=== PATIENT | female | born 1960 | race American Indian/Alaskan Native ===

== ENCOUNTER 2018-02-19 23:37 | Emergency (ER) | payer BC ==
[2018-02-20] MEDS ORDERED: MOTRIN PO ONE (05:42)
[2018-02-20] MEDS ORDERED: NORCO 7.5/325 PO ONE (05:42)
[2018-02-20] MEDS ORDERED: CLEOCIN IM ONE ×2 (05:42→06:20)
--- NOTE | 2018-02-20 05:42 | Emergency Department Report ---
ED ENT HPI - General Chief complaint: Dental/Oral Stated complaint: FACE SWOLLEN, HEADACHE Time Seen by Provider: 02/20/18 05:00 Source: patient, family Mode of arrival: Ambulatory Limitations: No Limitations - History of Present Illness Initial comments: Patient reports that she is having facial swelling to right side of her face felt an onset 1 hour prior to coming to the emergency room. She said prior to that she was eating some grapes and it started hurting and swollen in front of her right ear and behind her left ear. Reports pain is radiating into her right side of her head 5/10 feel achy. Pain to facial swelling site is also achy and 510. Denies any fever or chills. Denies any nausea or vomiting. Denies any trauma. Denies any difficulty opening and closing mouth. She does report the pain is worse with touch and would talking. No medication taken prior to coming to the emergency room MD complaint: other (right facial swelling radiating to right side of head) -: During the night Severity: moderate Severity scale (0 -10): 5 Quality: aching Consistency: constant Improves with: none Worsens with: other (palpation and talking) Context- Ear: other (patient with right facial swelling not involved in external ear canal or tympanic membrane) Associated Symptoms: denies: fever, cough, gum swelling, toothache, pain with swallowing, sore throat, tinnitus, hearing loss, discharge from ear, rhinorrhea - Related Data Home Medications Medication Instructions Recorded Confirmed Last Taken Hydrochlorothiazide [HCTZ] 25 mg PO DAILY 06/19/13 07/30/16 07/30/16 25mg Levothyroxine [Synthroid] 137 mcg PO QAM 06/19/13 07/30/16 07/30/16 137mcg Potassium Chloride 20 Meq [KCl 20 meq PO DAILY 06/19/13 07/30/16 07/30/16 20Meq/100Ml] 20meq AtorvaSTATin [Lipitor] 40 mg PO QHS 07/30/16 07/30/16 07/29/16 40mg Colchicine [Mitigare] 0.6 mg PO DAILY 07/30/16 07/30/16 07/30/16 0.6mg Dapagliflozin Propanediol (Nf) 5 mg PO BID 07/30/16 07/30/16 07/30/16 [Farxiga (Nf)] 5mg Duloxetine HCl [DULoxetine] 30 mg PO DAILY 07/30/16 07/30/16 07/30/16 30mg Insulin Detemir [Levemir Flexpen] 21 units SC DAILY 07/30/16 07/30/16 07/30/16 21 units Liraglutide [Victoza 2-Arden] 1.2 units SC DAILY 07/30/16 07/30/16 07/30/16 1.2 units Meloxicam [Mobic] 7.5 mg PO BID 07/30/16 07/30/16 07/30/16 7.5mg Vitamin D2 50,000 units PO 1XW 07/30/16 07/30/16 07/30/16 22290 units Previous Rx's Medication Instructions Recorded Last Taken Type Acetaminophen/Codeine [Tylenol 1 tab PO Q6H PRN #12 tab 02/20/18 Unknown Rx /Codeine # 3 tab] Clindamycin [Clindamycin CAP] 300 mg PO Q6H 10 Days #40 capsule 02/20/18 Unknown Rx Allergies Allergy/AdvReac Type Severity Reaction Status Date / Time No Known Allergies Allergy Verified 06/08/15 16:19 ED Dental HPI - General Chief complaint: Dental/Oral Stated complaint: FACE SWOLLEN, HEADACHE Time Seen by Provider: 02/20/18 05:00 Source: patient Mode of arrival: Ambulatory Limitations: No Limitations - Related Data Home Medications Medication Instructions Recorded Confirmed Last Taken Hydrochlorothiazide [HCTZ] 25 mg PO DAILY 06/19/13 07/30/16 07/30/16 25mg Levothyroxine [Synthroid] 137 mcg PO QAM 06/19/13 07/30/16 07/30/16 137mcg Potassium Chloride 20 Meq [KCl 20 meq PO DAILY 06/19/13 07/30/16 07/30/16 20Meq/100Ml] 20meq AtorvaSTATin [Lipitor] 40 mg PO QHS 07/30/16 07/30/16 07/29/16 40mg Colchicine [Mitigare] 0.6 mg PO DAILY 07/30/16 07/30/16 07/30/16 0.6mg Dapagliflozin Propanediol (Nf) 5 mg PO BID 07/30/16 07/30/16 07/30/16 [Farxiga (Nf)] 5mg Duloxetine HCl [DULoxetine] 30 mg PO DAILY 07/30/16 07/30/16 07/30/16 30mg Insulin Detemir [Levemir Flexpen] 21 units SC DAILY 07/30/16 07/30/16 07/30/16 21 units Liraglutide [Victoza 2-Arden] 1.2 units SC DAILY 07/30/16 07/30/16 07/30/16 1.2 units Meloxicam [Mobic] 7.5 mg PO BID 07/30/16 07/30/16 07/30/16 7.5mg Vitamin D2 50,000 units PO 1XW 07/30/16 07/30/16 07/30/16 63375 units Previous Rx's Medication Instructions Recorded Last Taken Type Acetaminophen/Codeine [Tylenol 1 tab PO Q6H PRN #12 tab 02/20/18 Unknown Rx /Codeine # 3 tab] Clindamycin [Clindamycin CAP] 300 mg PO Q6H 10 Days #40 capsule 02/20/18 Unknown Rx Allergies Allergy/AdvReac Type Severity Reaction Status Date / Time No Known Allergies Allergy Verified 06/08/15 16:19 ED Review of Systems ROS: Stated complaint: FACE SWOLLEN, HEADACHE Other details as noted in HPI Constitutional: denies: chills, fever, malaise Eyes: denies: eye pain, eye discharge, vision change ENT: other (right facial pain and swelling). denies: ear pain, throat pain, dental pain, hearing loss, epistaxis, congestion Respiratory: denies: cough, shortness of breath, SOB with exertion, SOB at rest , stridor, wheezing Cardiovascular: denies: chest pain, palpitations, edema, syncope Gastrointestinal: denies: abdominal pain, nausea, vomiting, diarrhea Genitourinary: denies: urgency, dysuria, discharge Musculoskeletal: arthralgia (pain to right face.). denies: back pain, joint swelling, myalgia Skin: other (swelling to right face). denies: rash, lesions Neurological: headache. denies: weakness, numbness, paresthesias, confusion, abnormal gait, vertigo ED Past Medical Hx - Past Medical History Previous Medical History?: Yes Hx Hypertension: Yes (10/07/2001) Hx Congestive Heart Failure: No Hx Diabetes: Yes Hx Arthritis: Yes Hx Asthma: No Hx COPD: No Additional medical history: thyroid problems. DIVERTICULITIS - Surgical History Past Surgical History?: Yes Hx Coronary Stent: No Hx Breast Surgery: Yes (double masectomy) Additional Surgical History: Partial thyroidectomy. HYSTERECTOMY - Family History Family history: diabetes, hypertension - Social History Smoking Status: Current Every Day Smoker Substance Use Type: Alcohol (socially) Other Social History: Patient is and lives with family - Medications Home Medications: Home Medications Medication Instructions Recorded Confirmed Last Taken Type Hydrochlorothiazide [HCTZ] 25 mg PO DAILY 06/19/13 07/30/16 07/30/16 History 25mg Levothyroxine [Synthroid] 137 mcg PO QAM 06/19/13 07/30/16 07/30/16 History 137mcg Potassium Chloride 20 Meq [KCl 20 meq PO DAILY 06/19/13 07/30/16 07/30/16 History 20Meq/100Ml] 20meq AtorvaSTATin [Lipitor] 40 mg PO QHS 07/30/16 07/30/16 07/29/16 History 40mg Colchicine [Mitigare] 0.6 mg PO DAILY 07/30/16 07/30/16 07/30/16 History 0.6mg Dapagliflozin Propanediol (Nf) 5 mg PO BID 07/30/16 07/30/16 07/30/16 History [Farxiga (Nf)] 5mg Duloxetine HCl [DULoxetine] 30 mg PO DAILY 07/30/16 07/30/16 07/30/16 History 30mg Insulin Detemir [Levemir Flexpen] 21 units SC DAILY 07/30/16 07/30/16 07/30/16 History 21 units Liraglutide [Victoza 2-Arden] 1.2 units SC DAILY 07/30/16 07/30/16 07/30/16 History 1.2 units Meloxicam [Mobic] 7.5 mg PO BID 07/30/16 07/30/16 07/30/16 History 7.5mg Vitamin D2 50,000 units PO 1XW 07/30/16 07/30/16 07/30/16 History 35311 units Acetaminophen/Codeine [Tylenol 1 tab PO Q6H PRN #12 tab 02/20/18 Unknown Rx /Codeine # 3 tab] Clindamycin [Clindamycin CAP] 300 mg PO Q6H 10 Days #40 capsule 02/20/18 Unknown Rx ED Physical Exam - General Limitations: No Limitations General appearance: alert, in no apparent distress - Head Head exam: Present: atraumatic, normocephalic, normal inspection, other (normal exam.) - Eye Eye exam: Present: normal appearance, PERRL, EOMI. Absent: scleral icterus, conjunctival injection, nystagmus, periorbital swelling, periorbital tenderness Pupils: Present: normal accommodation - ENT ENT exam: Present: normal exam, normal orophraynx, mucous membranes moist, TM's normal bilaterally, normal external ear exam, other (pre-and post auricular swelling that is fluctuant and tender to palpate. No mastoid point tenderness.) - Expanded ENT Exam Expanded Ear exam: Present: normal external inspection Mouth exam: Present: other (tender to palpate to oral mucosa right upper. No induration or cellulitis area noted.). Absent: normal external inspection, drooling, trismus, muffled voice, tongue elevation, laceration Teeth exam: Present: normal inspection. Absent: gingival enlargement Throat exam: Positive: normal inspection - Neck Neck exam: Present: normal inspection, full ROM, other (no C-spine tenderness). Absent: tenderness, lymphadenopathy - Respiratory Respiratory exam: Present: normal lung sounds bilaterally. Absent: respiratory distress, chest wall tenderness - Cardiovascular Cardiovascular Exam: Present: regular rate, normal rhythm. Absent: systolic murmur, diastolic murmur, rubs, gallop - GI/Abdominal GI/Abdominal exam: Present: soft, normal bowel sounds. Absent: distended, tenderness, guarding, rebound, rigid, organomegaly, mass, bruit, pulsatile mass , hernia - Extremities Exam Extremities exam: Present: normal inspection, full ROM, normal capillary refill , other (no clubbing, cyanosis or edema. +2 pulses all extremities and no neurovascular compromise). Absent: tenderness, pedal edema, joint swelling, calf tenderness - Back Exam Back exam: Present: normal inspection - Neurological Exam Neurological exam: Present: alert, oriented X3, normal gait - Psychiatric Psychiatric exam: Present: normal affect, normal mood - Skin Skin exam: Present: warm, dry, intact, normal color. Absent: rash ED Course Vital Signs 02/20/18 01:00 Temperature 98.0 F Pulse Rate 81 Respiratory 20 Rate Blood Pressure 136/89 O2 Sat by Pulse 96 Oximetry - Reevaluation(s) Reevaluation #1: 02/20/18 06:48 Patient given clindamycin 600 mg IM in emergency room for parotitis, she was given hydrocodone 5/325 mg 2 tablets by mouth and Motrin 800 mg by mouth for pain. Patient pain is controlled. Patient was also given Boostrix 0.5 mL to update tetanus. ED Medical Decision Making - Medical Decision Making ED course: Patient with supportive parotitis. Physical findings for pre-and postauricular swelling that is tender to palpate with positive fluctuance. Patient able to open and close mouth without any difficulties. I discussed with her her diagnoses and treatment plan and that she'll need to follow-up with her primary care physician which she says she does have one who is Dr. Isaura Chow. Told her to call this morning and schedule appointment for follow-up visit for in the morning. Patient was given clindamycin 600 mg IM, [place] 5/325 2 tablets by mouth and Motrin 800 mg by mouth for pain. Pain control has been achieved and she said she is now pain-free. She was given Boostrix 0.5 mL to update tetanus. I spoke with Dr. Earnest Fish regarding patient presentation, clinical findings and treatment plan and is in agreement. Patient discharged from the emergency room with prescription for clindamycin, n and Tylenol #3. She discharged from ED with her family in stable condition. Critical care attestation.: If time is entered above; I have spent that time in minutes in the direct care of this critically ill patient, excluding procedure time. ED Disposition Clinical Impression: Acute suppurative parotitis, Facial pain, acute Disposition: DC-01 TO HOME OR SELFCARE Is pt being admited?: No Does the pt Need Aspirin: No Condition: Stable Instructions: Sialoadenitis (ED) Additional Instructions: Take antibiotics as prescribed. If your condition worsens, return to the emergency room otherwise follow-up with your primary care physician tomorrow Take pain medicine as prescribed but please not drive or operate heavy machinery while taking Tylenol No. 3 as this medication causes drowsiness See referral to ENT Prescriptions: Acetaminophen/Codeine [Tylenol /Codeine # 3 tab] 1 tab PO Q6H PRN #12 tab PRN Reason: pain Clindamycin [Clindamycin CAP] 300 mg PO Q6H 10 Days #40 capsule Referrals: ISAURA CHOW MD [Primary Care Provider] - 02/21/18 ELINA HOOKS MD [Staff Physician] - 02/21/18 Forms: Work/School Release Form(ED)
[2018-02-20] MEDS ORDERED: CLEOCIN 900 MG/50 mL 900 MG/50 ML BAG IV ONE (05:56)
[2018-02-20] MEDS ORDERED: BOOSTRIX IM ONE (06:22)
[2018-02-20 07:08] VITALS: BP 134/84
== END 2018-02-20 07:08 | disposition home or self-care (01) ==
LOC: ED 23:37
DX: K11.21 Acute sialoadenitis (principal); I10 Essential (primary) hypertension; E11.9 Type 2 diabetes mellitus without complications; M19.90 Unspecified osteoarthritis, unspecified site; F17.200 Nicotine dependence, unspecified, uncomplicated; Z79.4 Long term (current) use of insulin
CPT/HCPCS: 90471; 90715; 96372; 99282